=== PATIENT | female | born 1960 | race African-American/Black ===

== ENCOUNTER 2022-04-09 16:55 | Emergency (ER) | payer BC ==
[2022-04-09 17:07] VITALS: BP 118/65; PULSE 96; RESP 18; TEMP 98.1; BMI 38.7
[2022-04-09] MEDS ORDERED: KETOROLAC TROMETHAMINE 15 MG/ML VIAL IM ONE (19:06)
[2022-04-09] MEDS ORDERED: KETOROLAC TROMETHAMINE 15 MG/ML VIAL ONE (19:07)
[2022-04-09 20:08] LABS: EOS % 3.5 % (0-4.5); HEMATOCRIT 37.3 % (32.4-45.2); HEMOGLOBIN 12.1 GM/dL (10.7-15.3); LYMPH % 32.4 % (8-40); MCH 28.6 pg (25.7-33.7); MCHC 32.5 g/dl (32.0-36.0); MEAN PLT VOLUME 9.2 fl (7.5-11.1); MONO % 7.6 % (3.8-10.2); NEUT % 55.5 % (42.8-82.8); PLATELET COUNT 280 10^3/uL (134-434); RBC 4.24 M/mm3 (3.60-5.2); RDW 13.1 % (11.6-15.6); WHITE BLOOD COUNT 10.3 K/mm3 (4.0-10.0)
[2022-04-09 20:22] LABS: CALCIUM 9.5 mg/dL (8.5-10.1)
[2022-04-09 20:23] LABS: ALBUMIN 4.2 g/dl (3.4-5.0); BLOOD UREA NITROGEN 19.8 mg/dL (7-18)
[2022-04-09 20:26] LABS: CREATININE 0.8 mg/dL (0.55-1.3)
[2022-04-09 20:27] LABS: BILIRUBIN,TOTAL 0.3 mg/dL (0.2-1)
[2022-04-09 20:28] LABS: TOT PROT 7.7 g/dl (6.4-8.2)
[2022-04-09] MEDS ORDERED: ACETAMINOPHEN 500 MG TABLET (FP) PO ONE (22:13)
[2022-04-09] MEDS ORDERED: diazePAM 5 MG TABLET PO ONE (22:13)
[2022-04-09] MEDS ORDERED: diazePAM 5 MG TABLET ONE (22:14)
[2022-04-09] MEDS ORDERED: ACETAMINOPHEN 500 MG TABLET (FP) ONE (22:14)
== END 2022-04-09 22:17 | disposition home or self-care (01) ==
LOC: JERFT 16:55
PROC: 3E0233Z Introduction of Anti-inflammatory into Muscle, Percutaneous Approach (ICD-10-PCS; principal; 2022-04-09)
DX: M54.6 Pain in thoracic spine (principal)
CPT/HCPCS: 36415; 71046-TC-FY; 72070-TC-FY; 80053; 84484; 85025; 93005; 93010; 99285-25